=== PATIENT | female | born 1975 | race Caucasian/White ===

== ENCOUNTER 2017-10-19 18:13 | Emergency (ER) | payer SELFPAY ==
[~2017-10-19] VITALS: Ht 162.6 cm; Wt 89.0 kg
[2017-10-19] MEDS: KETOROLAC 60MG/2ML VIAL IM ONE (22:50)
[2017-10-19] MEDS: DIAZEPAM 5 MG TABLET PO ONE (22:50)
[2017-10-19 22:53] VITALS: BP 133/69
== END 2017-10-20 00:18 | disposition home or self-care (01) ==
LOC: ER 18:30
DX: M54.2 Cervicalgia (principal); R07.81 Pleurodynia; V49.88XA Car occupant (driver) (passenger) injured in other specified transport accidents, initial encounter; Y93.89 Activity, other specified; Y92.410 Unspecified street and highway as the place of occurrence of the external cause; Y99.8 Other external cause status
CPT/HCPCS: 70450; 71010; 72125; 96372; 99284; J1885